=== PATIENT | female | born 1950 | race Caucasian/White ===

== ENCOUNTER 2016-08-29 18:14 | Emergency (ER) | payer OTHER ==
[~2016-08-29] VITALS: Ht 157.5 cm; Wt 72.3 kg
[2016-08-29 18:25] VITALS: BP 157/91; PULSE 68; RESP 16; TEMP 97.8; O2SAT 97
== END 2016-08-29 20:01 | disposition left against medical advice (07) ==
LOC: PHED 18:14
DX: R10.9 Unspecified abdominal pain (principal)
CPT/HCPCS: 99281